=== PATIENT | male | born 1950 | race Caucasian/White ===

== ENCOUNTER 2016-09-07 16:10 | Observation (INO) | payer OTHER, MEDICARE ==
[~2016-09-07 16:10] MED LIST: ALPRAZOLAM0.25 M3 PO; ASPIR 8181 M1 PO; FERREX 150150 M1 PO; LASIX40 M1 PO; MAGNESIUM OXID400 M1 PO; PRAVACHOL40 M1 PO; PROTONIX40 M2 PO; SOTALOL80 M1 PO; SPIRONOLACTONE25 M2 PO; SULFATRIM 800-120 ML; TOPROL XL50 M1 PO; ZESTRIL40 M2 PO
[2016-09-07 16:59] LABS: BASO % 0.6 % (0-2); BASO ABSOLUTE COUNT 0.1 tho/cmm (0.0-0.2); EOS % 1.9 % (0-7); EOSINOPHIL ABSOLUTE COUNT 0.2 tho/cmm (0.0-0.7); HCT-HEMATOCRIT 47.7 % (36.0-53.5); HGB-HEMOGLOBIN 16.5 gm/dl (13.5-17.0); IMMATURE GRANULOCYTES ABSOLUTE 0.04 tho/cmm (0-0.03); IMMATURE GRANULOCYTES PERCENT 0.4 % (0-0.3); LYMPH % 20.4 % (20-45); LYMPH ABSOLUTE COUNT 2.2 tho/cmm (0.8-4.5); MCH (MEAN CORPUSCULAR HGB) 29.4 pg (28.0-32.0); MCHC MEAN CORPUSCULAR HGB CONC 34.6 % (32.0-36.0); MEAN PLATELET VOLUME 9.9 cmc (9.4-12.4); MONO % 10.7 % (0-12); MONOCYTE ABSOLUTE COUNT 1.2 tho/cmm (0.0-1.2); NEUTROPHIL ABSOLUTE COUNT 7.2 tho/cmm (1.6-8.0); NEUTROPHIL-AUTOMATED 7.2 tho/cmm (1.6-8.0); PLATELET COUNT 243 tho/cmm (150-450); RED BLOOD COUNT 5.61 mil/cmm (4.40-5.70); WHITE BLOOD COUNT 10.8 tho/cmm (4.0-10.0)
[2016-09-07 17:16] LABS: ANION GAP 10 mmol/L (0-20); BLOOD UREA NITROGEN 30 mg/dl (6-24); CALCIUM 9.5 mg/dl (8.5-10.5); CARBON DIOXIDE-VENOUS 29 mmol/L (22-32); CHLORIDE 103 mmol/l (96-110); CREATININE 1.59 mg/dl (0.60-1.30); GLUCOSE 91 mg/dL (70-110); POTASSIUM 4.3 mmol/L (3.7-5.1); SODIUM 138 mmol/L (135-145); eGFR VALUE FOR BLACK 52 mL/Min
[2016-09-07 21:39] LABS: CHOLESTEROL 112 mg/dl (120-200); HDL CHOLESTEROL 34 mg/dl (40-60); LDL CHOLESTEROL 57 mg/dl (0-99); TRIGLYCERIDES 105 mg/dl (<149); VLDL 21 mg/dl (0-30)
== END 2016-09-08 14:25 ==
LOC: EDMED 16:10 → EMR2 20:50 → CAR1 21:36
PROVIDERS: Emergency Medicine; Nurse Practitioner Family; ADMIT Internal Medicine
DX: G89.29 Other chronic pain (principal); R07.89 Other chest pain; I13.0 Hypertensive heart and chronic kidney disease with heart failure and stage 1 through stage 4 chronic kidney disease, or unspecified chronic kidney disease; N18.3 Chronic kidney disease, stage 3 (moderate); I48.0 Paroxysmal atrial fibrillation; G47.33 Obstructive sleep apnea (adult) (pediatric); I50.32 Chronic diastolic (congestive) heart failure; E66.9 Obesity, unspecified; Z99.89 Dependence on other enabling machines and devices; Z79.82 Long term (current) use of aspirin; Z79.899 Other long term (current) drug therapy; Z95.2 Presence of prosthetic heart valve
CPT/HCPCS: C8929; G0378